=== PATIENT | male | born 1945 | race Caucasian/White ===

== ENCOUNTER 2017-03-08 10:37 | Emergency (ER) | payer MEDICARE, BC ==
--- NOTE | 2017-03-08 12:00 | RAD ---
TWO VIEWS CHEST: HISTORY: Chest pain. Shortness of breath. COMPARISON: None. FINDINGS: Two views of the chest show normal sized cardiomediastinal silhouette. There is no evidence of consol idation, mass, or pleural effusion. Degenerative changes are seen in the spine. IMPRESSION: No evidence of acute cardiopulmonary disease. POS: [facility]
--- NOTE | 2017-03-08 12:10 | RAD ---
THREE VIEWS CERVICAL SPINE: History: Fall with neck pain. FINDINGS: Three views of the cervical spine show fusion of the C6 and C7 vertebral bodies. There are moderate d egenerative changes in the upper to mid cervical spine with large anterior osteophytes. No acute frac ture or subluxation is seen. No prevertebral soft tissue swelling is present. IMPRESSION: Moderate to severe degenerative changes of the cervical spine without acute osseous abnormality. POS: [facility]
[2017-03-08] MEDS ORDERED: Ketorolac Tromethamine 30 MG/ML VIAL ONE (12:29)
== END 2017-03-08 12:30 | disposition home or self-care (01) ==
LOC: ERS 10:37
DX: S13.9XXA Sprain of joints and ligaments of unspecified parts of neck, initial encounter (principal); I10 Essential (primary) hypertension; Z79.82 Long term (current) use of aspirin; Z79.899 Other long term (current) drug therapy; V49.9XXA Car occupant (driver) (passenger) injured in unspecified traffic accident, initial encounter
CPT/HCPCS: 71046; 72040; 96374; J1885

== ENCOUNTER 2017-03-20 14:05 | Emergency (ER) | payer MEDICARE, BC ==
[2017-03-20] MEDS ORDERED: Ondansetron ODT 4 MG TAB ONE (15:13)
--- NOTE | 2017-03-20 15:18 | RAD ---
THREE VIEWS OF THE RIGHT SHOULDER: COMPARISON: None. HISTORY: Right shoulder pain after fall. FINDINGS: Three views of the right shoulder show no evidence of acute fracture or dislocation. No degenerative changes are seen. No soft tissue swelling is seen. The visualized right thorax is unremarkable. IMPRESSION: Unremarkable exam. POS: [facility]
--- NOTE | 2017-03-20 15:19 | CT ---
CT HEAD NONCONTRAST: Date: 03/20/17 INDICATION: Pain related to injury from fall. FINDINGS: There is parenchymal volume loss. Ventricular system is age-appropriate in size. There is mild chroni c microvascular ischemic disease. No intracranial hemorrhage, mass effect, or midline shift. There is mild opacification of the inferior left mastoid air cells. IMPRESSION: 1. No acute intracranial hemorrhage or mass effect. 2. Mild chronic microvascular ischemic disease. POS: [facility]
--- NOTE | 2017-03-20 15:19 | RAD ---
THREE VIEWS LEFT SHOULDER: COMPARISON: None. HISTORY: Left shoulder injury with pain. FINDINGS: Three views left shoulder show no evidence of acute fracture or dislocation. No degenerative changes are seen. No soft tissue swelling is present. The visualized left thorax is unremarkable. IMPRESSION: No evidence of acute osseous abnormality. POS: [facility]
--- NOTE | 2017-03-20 15:22 | CT ---
CT CERVICAL SPINE WITH CORONAL AND SAGITTAL REFORMATION: Date: 03/20/17 HISTORY: Fall. Neck pain. FINDINGS/IMPRESSION: There is loss of cervical lordosis with straightening of the cervical spine. Extensive degenerative c hanges are present in the cervical spine. No acute fracture or subluxation identified. 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 There is incomplete bone fusion at C6-7 level. POS: [facility]
[2017-03-20] MEDS ORDERED: Adacel (T-DAP) 0.5 ML VIAL ONE (16:22)
[2017-03-20] MEDS ORDERED: Promethazine HCl 25 MG/ML VIAL ONE (16:22)
[2017-03-20] MEDS ORDERED: Lorazepam 2 MG/ML VIAL ONE (17:11)
--- NOTE | 2017-03-20 18:13 | RAD ---
RIGHT THUMB THREE VIEWS: History: Fall. FINDINGS: There are arthritic changes of the first carpal metacarpal joint space and interphalangeal joint of t he thumb. There are no signs of fracture or dislocation. IMPRESSION: No evidence of fracture. POS: [facility]
== END 2017-03-20 19:06 | disposition home or self-care (01) ==
LOC: ERS 14:05
DX: S01.01XA Laceration without foreign body of scalp, initial encounter (principal); M25.531 Pain in right wrist; I10 Essential (primary) hypertension; Z79.82 Long term (current) use of aspirin; Z79.899 Other long term (current) drug therapy; W11.XXXA Fall on and from ladder, initial encounter
CPT/HCPCS: 12001; 70450; 72125; 90471; 90715; 96361; 96372; 96374; 96375; J2060; J2270; J2550; Q0162

== ENCOUNTER 2020-04-28 13:34 | Outpatient (CLI) | payer MEDICARE, BC | END 2020-04-28 13:35 | disposition home or self-care (01) | LOC: BICCT 13:34 | PROVIDERS: ATTEND Nurse Practitioner Family | DX: N23 Unspecified renal colic (principal); N20.2 Calculus of kidney with calculus of ureter; N28.1 Cyst of kidney, acquired; K76.9 Liver disease, unspecified; K76.0 Fatty (change of) liver, not elsewhere classified; K57.30 Diverticulosis of large intestine without perforation or abscess without bleeding | CPT/HCPCS: 74176 ==

== ENCOUNTER 2020-06-17 08:15 | Outpatient (CLI) | payer MEDICARE, BC ==
[2020-06-17] MEDS ORDERED: Iopamidol-370 76% 500 ML 1 ML ONE (11:35)
== END 2020-06-17 08:16 | disposition home or self-care (01) ==
LOC: BICCT 08:15
PROVIDERS: ATTEND Internal Medicine Gastroenterology
DX: D13.6 Benign neoplasm of pancreas (principal); K76.9 Liver disease, unspecified; N20.0 Calculus of kidney; N28.1 Cyst of kidney, acquired; K80.20 Calculus of gallbladder without cholecystitis without obstruction; K76.0 Fatty (change of) liver, not elsewhere classified
CPT/HCPCS: 74170; 82565; Q9967